=== PATIENT | male | born 1990 | race Caucasian/White ===

== ENCOUNTER 2017-10-09 07:45 | Outpatient (CLI) | payer OTHER ==
--- NOTE | 2017-10-09 16:52 | MRI Report ---
EXAM: LEFT SHOULDER MRI WITHOUT CONTRAST EXAM DATE: 10/09/2017 08:45 AM. CLINICAL HISTORY: Left shoulder pain. Previous injury while playing football 2 weeks ago. COMPARISON: Left clavicular radiography from 09/24/2017. TECHNIQUE: Multiplanar, multisequence T1-weighted and fluid-sensitive sequences of the shoulder witho ut contrast. Other: None. FINDINGS: Acromioclavicular Region: The acromion is type II. There is stripping of the superior and inferior ac romioclavicular ligaments from the distal aspect of the clavicle. Edematous tissue within the acromio clavicular joint. Splaying of the coracoclavicular ligament. Coracoacromial ligament is intact. No s ubacromial/subdeltoid bursal fluid. Glenohumeral Region: No subluxation. No effusion or loose bodies. The articular cartilage is unremark able. The glenohumeral ligaments and joint capsule are unremarkable. Bone Marrow: No fracture, marrow edema or bone lesions. Labrum: The labrum is grossly unremarkable on this non-arthrographic exam. However, there is a 9 x 7 x 3 mm paralabral cyst adjacent to the superior aspect of the biceps labral complex. Musculature/Rotator Cuff: There is supraspinatus tendinosis. Infraspinatus, teres minor, and subscapu meggan tendons are intact. No edema or fatty atrophy. Biceps Tendon: The long head of the biceps tendon and biceps renato are intact. Other: The subcutaneous tissues are unremarkable. IMPRESSION: 1. Type II acromioclavicular joint injury. 2. The labrum is grossly unremarkable on this non-arthrographic exam. However, there is a small 9 x 7 x 3 mm paralabral cyst adjacent to the superior aspect of the biceps labral complex. Usually, parala bral cysts are associated with labral tears. If further evaluation of the labrum is desired, a follow -up MR arthrogram exam May be helpful. 3. Supraspinatus tendinosis. No rotator cuff tear. [facility] MUSCULOSKE[facility] RADIOLOG[facility] SECTION Referring Provider Line: [phone] SITE ID: [id number]
== END 2017-10-09 07:46 | disposition home or self-care (01) ==
LOC: DI 07:45
PROVIDERS: ATTEND General Practice
DX: S49.92XA Unspecified injury of left shoulder and upper arm, initial encounter (principal); M25.512 Pain in left shoulder; S43.432A Superior glenoid labrum lesion of left shoulder, initial encounter